=== PATIENT | female | born 1975 | race African-American/Black ===

== ENCOUNTER 2017-05-29 11:05 | Inpatient (IN) | payer OTHER ==
[2017-05-29 14:01] VITALS: BMI 27.3
--- NOTE | 2017-05-29 14:13 | HP ---
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 Reports being in detox two weeks ago at [facility] but did not complete as became too anxious and left. Her children are in [place] in foster care and she would like to be sober for them. Exam Limitations: Clinical Condition - Ebola screening Have you traveled outside of the country in the last 21 days: No (N) Have you had contact with anyone from an Ebola affected area: No Have you been sick,other than usual withdrawal symptoms: No Do you have a fever: No - Review of Systems Constitutional: Loss of Appetite, Changes in sleep, Weakness EENT: reports: No Symptoms Reported Respiratory: reports: No Symptoms reported Cardiac: reports: No Symptoms Reported GI: reports: Poor Appetite, Poor Fluid Intake : reports: Frequency Musculoskeletal: reports: No Symptoms Reported Integumentary: reports: Dryness Neuro: reports: Headache, Tremors Endocrine: reports: No Symptoms Reported Hematology: reports: No Symptoms Reported Psychiatric: reports: Judgement Intact, Mood/Affect Appropiate, Anxious Other Systems: Reviewed and Negative Patient History - Patient Medical History Hx Anemia: No Hx Asthma: Yes (not on meds) Hx Chronic Obstructive Pulmonary Disease (COPD): No Hx Cancer: No Hx Cardiac Disorders: No Hx Congestive Heart Failure: No Hx Hypertension: No Hx Hypercholesterolemia: No Hx Pacemaker: No HX Cerebrovascular Accident: No Hx Seizures: No Hx Dementia: No Hx Diabetes: No Hx Gastrointestinal Disorders: No Hx Liver Disease: No Hx Genitourinary Disorders: No Hx Sexually Transmitted Disorders: No Hx Renal Disease (ESRD): No Hx Thyroid Disease: No Hx Human Immunodeficiency Virus (HIV): No Hx Hepatitis C: No Hx Depression: Yes (major depression, panic, anxiety) Hx Suicide Attempt: Yes (in past) Hx Bipolar Disorder: No Hx Schizophrenia: No - Patient Surgical History Hx Section: Yes (three) - PPD History Previous Implant?: Yes Documented Results: Negative w/o proof Implanted On Prior R Admission?: No PPD to be Administered?: Yes - Reproductive History Patient is a Female of Child Bearing Age (11 -55 yrs old): Yes - Smoking Cessation Smoking history: Current every day smoker Have you smoked in the past 12 months: Yes Aproximately how many cigarettes per day: 15 Initiated information on smoking cessation: Yes 'Breaking Loose' booklet given: 05/29/17 (give on floor) - Substance & Tx. History Hx Alcohol Use: Yes Hx Substance Use: Yes Substance Use Type: Alcohol, Heroin Hx Substance Use Treatment: Yes (detox, outpatient rehab) - Substances Abused alcohol Route: Oral Frequency: Daily Amount used: 2 pints liquor (rum), six pack 12 oz beer Age of first use: 7 Date of Last Use: 05/29/17 cocaine Route: Smoking Frequency: Daily Amount used: $200 Age of first use: 23 Date of Last Use: 05/29/17 marijuan Frequency: 1-2 times per week Amount used: 2 blunts Age of first use: 23 Date of Last Use: 05/22/17 Family Disease History - Family Disease History Family Disease History: Heart Disease: Brother (one living - HTN, sleep apne), Other: Father (unknown), Mother (, AIDS, hx IDU), Brother, Sister (1/2 sisters - no contact), Daughter (three, one with epilepsy) Admission Physical Exam BHS - Vital Signs Vital Signs: Vital Signs - 24 hr 05/29/17 13:54 Temperature 98.1 F Pulse Rate 87 Respiratory 16 Rate Blood Pressure 124/73 - Physical General Appearance: Yes: Nourished, Appropriately Dressed, Moderate Distress, Tremorous, Anxious HEENTM: Yes: Hearing grossly Normal, Normocephalic, Normal Voice, Pharynx Normal Respiratory: Yes: Normal Breath Sounds, No Respiratory Distress Neck: Yes: No masses,lesions,Nodules, Supple Breast: Yes: Breast Exam Deferred Cardiology: Yes: Regular Rhythm, Regular Rate Abdominal: Yes: Non Tender, Flat Genitourinary: Yes: Frequency Back: Yes: Normal Inspection Musculoskeletal: Yes: full range of Motion, Gait Steady Extremities: Yes: Normal Capillary Refill, Normal Inspection, Tremors Neurological: Yes: Alert, Normal Mood/Affect, Normal Response Integumentary: Yes: Normal Color, Warm Lymphatic: Yes: Within Normal Limits - Diagnostic (1) Alcohol dependence with withdrawal Current Visit: Yes Status: Chronic Qualifiers: Complication of substance-induced condition: uncomplicated Qualified Code(s ): F10.230 - Alcohol dependence with withdrawal, uncomplicated (2) Nicotine dependence Current Visit: Yes Status: Chronic Qualifiers: Nicotine product type: cigarettes Substance use status: uncomplicated Qualified Code(s): F17.210 - Nicotine dependence, cigarettes, uncomplicated Cleared for Admission [facility] - Detox or Rehab [facility] Level of Care: Medically Managed Detox Regimen/Protocol: Librium [facility] Breath Alcohol Content Breath Alcohol Content: 0 Urine Pregancy Test - Result Urine Test Results: Negative- NO Line Present Urine Drug Screen - Results Drug Screen Negative: No Urine Drug Screen Results: THC-Marijuana, VIGNESH-Cocaine, BZO-Benzodiazepines
[2017-05-29] MEDS ORDERED: LOPERAMIDE HCL 2 MG CAPSULE PO PRN (14:21)
[2017-05-29] MEDS ORDERED: chlordiazePOXIDE HCL 25 MG CAPSULE PO PRN (14:21)
[2017-05-29] MEDS ORDERED: P-EPHED 60MG/TRIPROLIDI 2.5MG TABLET PO PRN (14:21)
[2017-05-29] MEDS ORDERED: MAG HYDROX/AL HYDROX/SIMETH 30 ML UNIT-DOSE CUP PO PRN (14:21)
[2017-05-29] MEDS ORDERED: IBUPROFEN 400 MG TABLET (FP) PO PRN (14:21)
[2017-05-29] MEDS ORDERED: MAGNESIUM HYDROX 2400MG/30ML ORAL SUSPENSION 30 ML CUP PO PRN (14:21)
[2017-05-29] MEDS ORDERED: NICOTINE POLACRILEX 4 MG GUM BC PRN (14:21)
[2017-05-29] MEDS ORDERED: chlordiazePOXIDE HCL 25 MG CAPSULE PO ONE (14:21)
[2017-05-29] MEDS ORDERED: guaiFENesin/D-METHORPHAN HB 10 ML UNIT-DOSE CUPS PO PRN (14:21)
[2017-05-29] MEDS ORDERED: MAGNESIUM CITRATE 300 ML BOTTLE PO PRN (14:21)
[2017-05-29] MEDS ORDERED: ACETAMINOPHEN 325 MG TABLET (FP) PO PRN (14:21)
[2017-05-29] MEDS ORDERED: MENTHOL/PHENOL 1 EACH UD MM PRN (14:21)
[2017-05-29] MEDS ORDERED: ALBUTEROL SO4 18 GM HFA INHALER IH PRN (14:23)
[2017-05-29] MEDS: chlordiazePOXIDE HCL 25 MG CAPSULE PO SCH ×2 (17:07→23:38)
[2017-05-29 18:16] LABS: URINE APPEARANCE SLCLOUDY; URINE BILIRUBIN NEGATIVE (NEGATIVE); URINE BLOOD NEGATIVE (NEGATIVE); URINE COLOR YELLOW; URINE GLUCOSE (UA) NEGATIVE (NEGATIVE); URINE KETONE TRACE (NEGATIVE); URINE LEUK ESTERASE NEGATIVE (NEGATIVE); URINE NITRITE NEGATIVE (NEGATIVE); URINE PROTEIN NEGATIVE (NEGATIVE); URINE UROBILINOGEN 4.0 E.U/dl mg/dL (0.2-1.0)
[2017-05-29] MEDS: THIAMINE HCL 100 MG TABLET (FP) PO SCH (23:39)
[2017-05-30] MEDS: chlordiazePOXIDE HCL 25 MG CAPSULE PO SCH ×4 (07:50→22:38)
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
[2017-05-30 10:43] LABS: HEMATOCRIT 39.4 % (32.4-45.2); HEMOGLOBIN 13.1 GM/dL (10.7-15.3); MCH 28.8 pg (25.7-33.7); MCHC 33.2 g/dl (32.0-36.0); MEAN CELL VOLUME 86.7 fl (80-96); PLATELET COUNT 165 K/MM3 (134-434); RBC 4.54 M/mm3 (3.60-5.2); RDW 15.2 % (11.6-15.6); WHITE BLOOD COUNT 4.8 K/mm3 (4.0-10.0)
[2017-05-30 10:57] LABS: ALBUMIN 3.4 g/dl (3.4-5.0); ANION GAP 11 (8-16); BLOOD UREA NITROGEN 8 mg/dL (7-18); CALCIUM 8.3 mg/dL (8.5-10.1); CHLORIDE 106 mmol/L (98-107); CO2 24 mmol/L (21-32); CREATININE 0.7 mg/dL (0.55-1.02); GLUCOSE,RANDOM 80 mg/dL (74-106); POTASSIUM 4.1 mmol/L (3.5-5.1); SGOT/AST 16 U/L (15-37); SGPT/ALT 26 U/L (12-78); SODIUM 141 mmol/L (136-145)
[2017-05-30 10:59] LABS: ALK PHOS 53 U/L (45-117); BILIRUBIN,TOTAL 0.5 mg/dL (0.2-1.0)
[2017-05-30] MEDS: PRENATAL VITAMINS W/ FOLIC ACID TABLET (FP) PO SCH (11:10)
[2017-05-30] MEDS: hydrOXYzine PAMOATE 50 MG CAPSULE (FP) PO PRN (11:11)
--- NOTE | 2017-05-30 12:01 | PN ---
S CIWA - CIWA Score Nausea/Vomitin-Mild Nausea/No Vomiting Muscle Tremors: 4-Moderate,w/Arms Extend Anxiety: 4-Mod. Anxious/Guarded Agitation: 4-Moderately Restless Paroxysmal Sweats: 1-Minimal Palms Moist Orientation: 0-Oriented Tacttile Disturbances: 1-Very Mild Itch/Numbness Auditory Disturbances: 0-None Visual Disturbances: 0-None Headache: 0-None Present CIWA-Ar Total Score: 15 BHS Progress Note (SOAP) Subjective: sweat tremor anxiety gi distress restlessness Objective: 05/30/17 12:01 Vital Signs Temperature 98.1 F 05/30/17 10:05 Pulse Rate 84 05/30/17 10:05 Respiratory Rate 20 05/30/17 10:05 Blood Pressure 118/73 05/30/17 10:05 O2 Sat by Pulse Oximetry (%) Laboratory Last Values WBC 4.8 K/mm3 (4.0-10.0) 05/30/17 08:00 RBC 4.54 M/mm3 (3.60-5.2) 05/30/17 08:00 Hgb 13.1 GM/dL (10.7-15.3) 05/30/17 08:00 Hct 39.4 % (32.4-45.2) 05/30/17 08:00 MCV 86.7 fl (80-96) 05/30/17 08:00 MCH 28.8 pg (25.7-33.7) 05/30/17 08:00 MCHC 33.2 g/dl (32.0-36.0) 05/30/17 08:00 RDW 15.2 % (11.6-15.6) 05/30/17 08:00 Plt Count 165 K/MM3 (134-434) 05/30/17 08:00 MPV 11.0 fl (7.5-11.1) 05/30/17 08:00 Sodium 141 mmol/L (136-145) 05/30/17 08:00 Potassium 4.1 mmol/L (3.5-5.1) 05/30/17 08:00 Chloride 106 mmol/L (98-107) 05/30/17 08:00 Carbon Dioxide 24 mmol/L (21-32) 05/30/17 08:00 Anion Gap 11 (8-16) 05/30/17 08:00 BUN 8 mg/dL (7-18) 05/30/17 08:00 Creatinine 0.7 mg/dL (0.55-1.02) 05/30/17 08:00 Creat Clearance w eGFR > 60 (>60) 05/30/17 08:00 Random Glucose 80 mg/dL (74-106) 05/30/17 08:00 Calcium 8.3 mg/dL (8.5-10.1) L 05/30/17 08:00 Total Bilirubin 0.5 mg/dL (0.2-1.0) 05/30/17 08:00 AST 16 U/L (15-37) 05/30/17 08:00 ALT 26 U/L (12-78) 05/30/17 08:00 Alkaline Phosphatase 53 U/L (45-117) 05/30/17 08:00 Total Protein 7.0 g/dl (6.4-8.2) 05/30/17 08:00 Albumin 3.4 g/dl (3.4-5.0) 05/30/17 08:00 Urine Color Yellow 05/29/17 18:05 Urine Appearance Slcloudy 05/29/17 18:05 Urine pH 6.0 (5.0-8.0) 05/29/17 18:05 Ur Specific [place] 1.027 (1.001-1.035) 05/29/17 18:05 Urine Protein Negative (NEGATIVE) 05/29/17 18:05 Urine Glucose (UA) Negative (NEGATIVE) 05/29/17 18:05 Urine Ketones Trace (NEGATIVE) H 05/29/17 18:05 Urine Blood Negative (NEGATIVE) 05/29/17 18:05 Urine Nitrite Negative (NEGATIVE) 05/29/17 18:05 Urine Bilirubin Negative (NEGATIVE) 05/29/17 18:05 Urine Urobilinogen 4.0 e.u/dl mg/dL (0.2-1.0) H 05/29/17 18:05 Ur Leukocyte Esterase Negative (NEGATIVE) 05/29/17 18:05 lab noted Assessment: 05/30/17 12:01 withdrawal sx Plan: continue detox
[2017-05-30] MEDS: THIAMINE HCL 100 MG TABLET (FP) PO SCH (22:38)
[2017-05-30] MEDS: ZOLPIDEM TARTRATE 5 MG TABLET PO PRN (22:39)
--- NOTE | 2017-05-31 00:11 | EKG ---
Test Reason : Blood Pressure : / mmHG Vent. Rate : 076 BPM Atrial Rate : 076 BPM P-R Int : 140 ms QRS Dur : 078 ms QT Int : 390 ms P-R-T Axes : 057 065 043 degrees QTc Int : 438 ms NORMAL SINUS RHYTHM NORMAL ECG NO PREVIOUS ECGS AVAILABLE Confirmed by BETTE PINO MD ([id number]) on 05/31/2017 12:11:27 AM Referred By: Confirmed By:BETTE PINO MD
[2017-05-31] MEDS: chlordiazePOXIDE HCL 25 MG CAPSULE PO SCH ×2 (07:41→10:49)
[2017-05-31] MEDS: PRENATAL VITAMINS W/ FOLIC ACID TABLET (FP) PO SCH (10:49)
--- NOTE | 2017-05-31 11:34 | PN ---
S CIWA - CIWA Score Nausea/Vomitin-Mild Nausea/No Vomiting Muscle Tremors: 4-Moderate,w/Arms Extend Anxiety: 3 Agitation: 3 Paroxysmal Sweats: 1-Minimal Palms Moist Orientation: 0-Oriented Tacttile Disturbances: 0-None Auditory Disturbances: 0-None Visual Disturbances: 0-None Headache: 0-None Present CIWA-Ar Total Score: 12 BHS Progress Note (SOAP) Subjective: sweat tremor anxiety restlessness mild gi distress Objective: 05/31/17 11:33 Vital Signs Temperature 98.1 F 05/31/17 07:09 Pulse Rate 74 05/31/17 07:09 Respiratory Rate 18 05/31/17 07:09 Blood Pressure 99/53 05/31/17 07:09 O2 Sat by Pulse Oximetry (%) Laboratory Last Values WBC 4.8 K/mm3 (4.0-10.0) 05/30/17 08:00 RBC 4.54 M/mm3 (3.60-5.2) 05/30/17 08:00 Hgb 13.1 GM/dL (10.7-15.3) 05/30/17 08:00 Hct 39.4 % (32.4-45.2) 05/30/17 08:00 MCV 86.7 fl (80-96) 05/30/17 08:00 MCH 28.8 pg (25.7-33.7) 05/30/17 08:00 MCHC 33.2 g/dl (32.0-36.0) 05/30/17 08:00 RDW 15.2 % (11.6-15.6) 05/30/17 08:00 Plt Count 165 K/MM3 (134-434) 05/30/17 08:00 MPV 11.0 fl (7.5-11.1) 05/30/17 08:00 Sodium 141 mmol/L (136-145) 05/30/17 08:00 Potassium 4.1 mmol/L (3.5-5.1) 05/30/17 08:00 Chloride 106 mmol/L (98-107) 05/30/17 08:00 Carbon Dioxide 24 mmol/L (21-32) 05/30/17 08:00 Anion Gap 11 (8-16) 05/30/17 08:00 BUN 8 mg/dL (7-18) 05/30/17 08:00 Creatinine 0.7 mg/dL (0.55-1.02) 05/30/17 08:00 Creat Clearance w eGFR > 60 (>60) 05/30/17 08:00 Random Glucose 80 mg/dL (74-106) 05/30/17 08:00 Calcium 8.3 mg/dL (8.5-10.1) L 05/30/17 08:00 Total Bilirubin 0.5 mg/dL (0.2-1.0) 05/30/17 08:00 AST 16 U/L (15-37) 05/30/17 08:00 ALT 26 U/L (12-78) 05/30/17 08:00 Alkaline Phosphatase 53 U/L (45-117) 05/30/17 08:00 Total Protein 7.0 g/dl (6.4-8.2) 05/30/17 08:00 Albumin 3.4 g/dl (3.4-5.0) 05/30/17 08:00 Urine Color Yellow 05/29/17 18:05 Urine Appearance Slcloudy 05/29/17 18:05 Urine pH 6.0 (5.0-8.0) 05/29/17 18:05 Ur Specific [place] 1.027 (1.001-1.035) 05/29/17 18:05 Urine Protein Negative (NEGATIVE) 05/29/17 18:05 Urine Glucose (UA) Negative (NEGATIVE) 05/29/17 18:05 Urine Ketones Trace (NEGATIVE) H 05/29/17 18:05 Urine Blood Negative (NEGATIVE) 05/29/17 18:05 Urine Nitrite Negative (NEGATIVE) 05/29/17 18:05 Urine Bilirubin Negative (NEGATIVE) 05/29/17 18:05 Urine Urobilinogen 4.0 e.u/dl mg/dL (0.2-1.0) H 05/29/17 18:05 Ur Leukocyte Esterase Negative (NEGATIVE) 05/29/17 18:05 RPR Titer Nonreactive (NONREACTIVE) 05/30/17 08:00 HIV 1&2 Antibody Screen Negative 05/30/17 08:00 HIV P24 Antigen Negative 05/30/17 08:00 lab noted Assessment: 05/31/17 11:33 withdrawal sx Plan: continue detox
--- NOTE | 2017-05-31 14:21 | PN ---
Psychiatric Progress Note Vital Signs: Vital Signs Period Temp Pulse Resp BP Sys/Moya Pulse Ox Last 24 Hr 96.3 F-98.1 F 74-93 16-20 99-131/53-77 Date of Session: 05/31/17 Chief Complaint:: Insomnia HPI: Patient reporoits waking uo aftyre Ambien intake in 4-5 hours, and asking fro lab aid to sleep longer, reports good response on Seroquel in the past Current Medications: Active Medications Generic Name Dose Route Start Last Admin Trade Name Freq PRN Reason Stop Dose Admin Acetaminophen 650 mg 05/29/17 14:21 Tylenol - PO Q4H PRN FEVER Al Hydroxide/Mg Hydroxide 30 ml 05/29/17 14:21 Mylanta Oral Suspension - PO Q6H PRN DYSPEPSIA Albuterol Sulfate 2 puff 05/29/17 14:23 Ventolin Hfa Inhaler - IH Q4H PRN SHORT OF BREATH/WHEEZING Chlordiazepoxide HCl 15 mg 05/31/17 17:00 Librium - PO 06/01/17 11:01 [id number] ADRI Chlordiazepoxide HCl 25 mg 05/29/17 14:21 05/29/17 20:55 Librium - PO 06/01/17 14:20 25 mg Q4H PRN Administration WITHDRAWAL(CONT SUBST) Chlordiazepoxide HCl 10 mg 06/01/17 17:00 Librium - PO 06/02/17 11:01 [id number] ADRI Eucalyptus/Menthol/Phenol/Sorbitol 1 each 05/29/17 14:21 Cepastat Lozenge - MM Q4H PRN SORE THROAT Guaifenesin 10 ml 05/29/17 14:21 Robitussin Dm - PO Q6H PRN COUGH Hydroxyzine Pamoate 50 mg 05/29/17 14:21 05/30/17 11:11 Vistaril - PO 50 mg Q4H PRN Administration AGITATION Ibuprofen 400 mg 05/29/17 14:21 Motrin - PO Q6H PRN PAIN LEVEL 4-6 Loperamide HCl 4 mg 05/29/17 14:21 Imodium - PO Q6H PRN DIARRHEA Magnesium Citrate 300 ml 05/29/17 14:21 Citroma - PO Q48H PRN CONSTIPATION Magnesium Hydroxide 30 ml 05/29/17 14:21 Milk Of Magnesia - PO DAILY PRN CONSTIPATION Nicotine Polacrilex 4 mg 05/29/17 14:21 Nicorette Gum - BC Q2H PRN NICOTINE REPLACEMENT RX Multivit/Folic Acid/Iron 1 tab 05/30/17 10:00 05/31/17 10:49 Vitamins (Sjr) - PO 1 tab DAILY ADRI Administration Pseudoephedrine/Triprolidine 1 combo 05/29/17 14:21 Actifed - PO TID PRN NASAL CONGESTION Thiamine HCl 100 mg 05/29/17 22:00 05/30/17 22:38 Vitamin B1 - PO 100 mg HS ADRI Administration Zolpidem Tartrate 10 mg 05/30/17 14:24 05/30/17 22:39 Ambien - PO 10 mg HS PRN Administration INSOMNIA Medication(s) Change(s): Seroquel 50mg po qhs Mental Status Exam - Mental Status Exam Alert and Oriented to: Person Cognitive Function: Fair Patient Appearance: Well Groomed Mood: Anxious, Irritable Affect: Labile Patient Behavior: Impulsive, Talkative, Cooperative Speech Pattern: Appropriate Voice Loudness: Normal Thought Process: Goal Oriented Thought Disorder: Being Controlled Hallucinations: Denies Suicidal Ideation: Denies Homicidal Ideation: Denies Insight/Judgement: Fair Sleep: Difficulty falling asleep Appetite: Weight loss Muscle strength/Tone: Normal Gait/Station: Normal Additional Comments: Seroquel 50mg po qhs Psychiatric Treatment Plan - Problem List (1) Alcohol-induced insomnia Current Visit: Yes (2) Alcohol dependence with withdrawal Current Visit: Yes Qualifiers: Complication of substance-induced condition: uncomplicated Qualified Code(s ): F10.230 - Alcohol dependence with withdrawal, uncomplicated (3) Cannabis dependence Current Visit: Yes (4) Cocaine dependence Current Visit: Yes (5) Substance induced mood disorder Current Visit: Yes (6) Nicotine dependence Current Visit: Yes Qualifiers: Nicotine product type: cigarettes Substance use status: uncomplicated Qualified Code(s): F17.210 - Nicotine dependence, cigarettes, uncomplicated (7) PTSD (post-traumatic stress disorder) Current Visit: Yes (8) MDD (major depressive disorder) Current Visit: Yes Initial treatment plan: Seroquel 50mg po qhs
[2017-05-31] MEDS: chlordiazePOXIDE 5 MG CAPSULE PO SCH ×2 (17:50→22:19)
[2017-05-31] MEDS: QUEtiapine FUMARATE 50 MG TABLET PO SCH (22:19)
[2017-05-31] MEDS: ZOLPIDEM TARTRATE 5 MG TABLET PO PRN (22:19)
[2017-05-31] MEDS: THIAMINE HCL 100 MG TABLET (FP) PO SCH (22:20)
[2017-06-01] MEDS: chlordiazePOXIDE 5 MG CAPSULE PO SCH ×2 (06:38→10:54)
--- NOTE | 2017-06-01 09:32 | PN ---
S Progress Note (SOAP) Subjective: feeling better, mild sweat no tremor tolerates food and fluid well alert oriented x3 steady gait Objective: 06/01/17 09:31 Vital Signs Temperature 98.1 F 06/01/17 06:00 Pulse Rate 86 06/01/17 06:00 Respiratory Rate 18 06/01/17 06:00 Blood Pressure 105/74 06/01/17 06:00 O2 Sat by Pulse Oximetry (%) Laboratory Last Values WBC 4.8 K/mm3 (4.0-10.0) 05/30/17 08:00 RBC 4.54 M/mm3 (3.60-5.2) 05/30/17 08:00 Hgb 13.1 GM/dL (10.7-15.3) 05/30/17 08:00 Hct 39.4 % (32.4-45.2) 05/30/17 08:00 MCV 86.7 fl (80-96) 05/30/17 08:00 MCH 28.8 pg (25.7-33.7) 05/30/17 08:00 MCHC 33.2 g/dl (32.0-36.0) 05/30/17 08:00 RDW 15.2 % (11.6-15.6) 05/30/17 08:00 Plt Count 165 K/MM3 (134-434) 05/30/17 08:00 MPV 11.0 fl (7.5-11.1) 05/30/17 08:00 Sodium 141 mmol/L (136-145) 05/30/17 08:00 Potassium 4.1 mmol/L (3.5-5.1) 05/30/17 08:00 Chloride 106 mmol/L (98-107) 05/30/17 08:00 Carbon Dioxide 24 mmol/L (21-32) 05/30/17 08:00 Anion Gap 11 (8-16) 05/30/17 08:00 BUN 8 mg/dL (7-18) 05/30/17 08:00 Creatinine 0.7 mg/dL (0.55-1.02) 05/30/17 08:00 Creat Clearance w eGFR > 60 (>60) 05/30/17 08:00 Random Glucose 80 mg/dL (74-106) 05/30/17 08:00 Calcium 8.3 mg/dL (8.5-10.1) L 05/30/17 08:00 Total Bilirubin 0.5 mg/dL (0.2-1.0) 05/30/17 08:00 AST 16 U/L (15-37) 05/30/17 08:00 ALT 26 U/L (12-78) 05/30/17 08:00 Alkaline Phosphatase 53 U/L (45-117) 05/30/17 08:00 Total Protein 7.0 g/dl (6.4-8.2) 05/30/17 08:00 Albumin 3.4 g/dl (3.4-5.0) 05/30/17 08:00 Urine Color Yellow 05/29/17 18:05 Urine Appearance Slcloudy 05/29/17 18:05 Urine pH 6.0 (5.0-8.0) 05/29/17 18:05 Ur Specific [place] 1.027 (1.001-1.035) 05/29/17 18:05 Urine Protein Negative (NEGATIVE) 05/29/17 18:05 Urine Glucose (UA) Negative (NEGATIVE) 05/29/17 18:05 Urine Ketones Trace (NEGATIVE) H 05/29/17 18:05 Urine Blood Negative (NEGATIVE) 05/29/17 18:05 Urine Nitrite Negative (NEGATIVE) 05/29/17 18:05 Urine Bilirubin Negative (NEGATIVE) 05/29/17 18:05 Urine Urobilinogen 4.0 e.u/dl mg/dL (0.2-1.0) H 05/29/17 18:05 Ur Leukocyte Esterase Negative (NEGATIVE) 05/29/17 18:05 RPR Titer Nonreactive (NONREACTIVE) 05/30/17 08:00 Hep C Ab Diagnostic <0.1 s/co ratio (0.0-0.9) 05/30/17 08:00 HIV 1&2 Antibody Screen Negative 05/30/17 08:00 HIV P24 Antigen Negative 05/30/17 08:00 lab noted Assessment: 06/01/17 09:31 mild withdrawal sx Plan: medically supervised detox
[2017-06-01] MEDS: PRENATAL VITAMINS W/ FOLIC ACID TABLET (FP) PO SCH (10:54)
[2017-06-01] MEDS: hydrOXYzine PAMOATE 50 MG CAPSULE (FP) PO PRN ×2 (15:25→22:12)
[2017-06-01] MEDS: chlordiazePOXIDE HCL 10 MG CAPSULE PO SCH ×2 (18:04→22:12)
[2017-06-01] MEDS: ZOLPIDEM TARTRATE 5 MG TABLET PO PRN (22:12)
[2017-06-01] MEDS: QUEtiapine FUMARATE 50 MG TABLET PO SCH (22:12)
[2017-06-01] MEDS: THIAMINE HCL 100 MG TABLET (FP) PO SCH (22:12)
[2017-06-02] MEDS: chlordiazePOXIDE HCL 10 MG CAPSULE PO SCH (05:25)
[2017-06-02 06:19] VITALS: BP 110/76; PULSE 95; TEMP 98.1
--- NOTE | 2017-06-02 10:04 | PN ---
S Progress Note Note: patient is alert oriented x 3 steady gait tolerates food and fluid well social with peers in day room cardiac s1s2 lungs clear bilaterally abdomen soft none tenderness no acute distress
--- NOTE | 2017-06-02 10:09 | DS ---
[facility] Detox Discharge Summary Admission Date: 05/29/17 Discharge Date: 06/02/17 - History Present History: Alcohol Dependence - Physical Exam Results Vital Signs: Vital Signs Temperature 98.1 F 06/02/17 06:00 Pulse Rate 95 H 06/02/17 06:00 Respiratory Rate 18 06/02/17 06:00 Blood Pressure 110/76 06/02/17 06:00 O2 Sat by Pulse Oximetry (%) Pertinent Admission Physical Exam Findings: withdrawal sx Laboratory Last Values WBC 4.8 K/mm3 (4.0-10.0) 05/30/17 08:00 RBC 4.54 M/mm3 (3.60-5.2) 05/30/17 08:00 Hgb 13.1 GM/dL (10.7-15.3) 05/30/17 08:00 Hct 39.4 % (32.4-45.2) 05/30/17 08:00 MCV 86.7 fl (80-96) 05/30/17 08:00 MCH 28.8 pg (25.7-33.7) 05/30/17 08:00 MCHC 33.2 g/dl (32.0-36.0) 05/30/17 08:00 RDW 15.2 % (11.6-15.6) 05/30/17 08:00 Plt Count 165 K/MM3 (134-434) 05/30/17 08:00 MPV 11.0 fl (7.5-11.1) 05/30/17 08:00 Sodium 141 mmol/L (136-145) 05/30/17 08:00 Potassium 4.1 mmol/L (3.5-5.1) 05/30/17 08:00 Chloride 106 mmol/L (98-107) 05/30/17 08:00 Carbon Dioxide 24 mmol/L (21-32) 05/30/17 08:00 Anion Gap 11 (8-16) 05/30/17 08:00 BUN 8 mg/dL (7-18) 05/30/17 08:00 Creatinine 0.7 mg/dL (0.55-1.02) 05/30/17 08:00 Creat Clearance w eGFR > 60 (>60) 05/30/17 08:00 Random Glucose 80 mg/dL (74-106) 05/30/17 08:00 Calcium 8.3 mg/dL (8.5-10.1) L 05/30/17 08:00 Total Bilirubin 0.5 mg/dL (0.2-1.0) 05/30/17 08:00 AST 16 U/L (15-37) 05/30/17 08:00 ALT 26 U/L (12-78) 05/30/17 08:00 Alkaline Phosphatase 53 U/L (45-117) 05/30/17 08:00 Total Protein 7.0 g/dl (6.4-8.2) 05/30/17 08:00 Albumin 3.4 g/dl (3.4-5.0) 05/30/17 08:00 Urine Color Yellow 05/29/17 18:05 Urine Appearance Slcloudy 05/29/17 18:05 Urine pH 6.0 (5.0-8.0) 05/29/17 18:05 Ur Specific [place] 1.027 (1.001-1.035) 05/29/17 18:05 Urine Protein Negative (NEGATIVE) 05/29/17 18:05 Urine Glucose (UA) Negative (NEGATIVE) 05/29/17 18:05 Urine Ketones Trace (NEGATIVE) H 05/29/17 18:05 Urine Blood Negative (NEGATIVE) 05/29/17 18:05 Urine Nitrite Negative (NEGATIVE) 05/29/17 18:05 Urine Bilirubin Negative (NEGATIVE) 05/29/17 18:05 Urine Urobilinogen 4.0 e.u/dl mg/dL (0.2-1.0) H 05/29/17 18:05 Ur Leukocyte Esterase Negative (NEGATIVE) 05/29/17 18:05 RPR Titer Nonreactive (NONREACTIVE) 05/30/17 08:00 Hep C Ab Diagnostic <0.1 s/co ratio (0.0-0.9) 05/30/17 08:00 HIV 1&2 Antibody Screen Negative 05/30/17 08:00 HIV P24 Antigen Negative 05/30/17 08:00 lab noted - Treatment Hospital Course: Detox Protocol Followed, Detoxed Safely, Responded well, Discharged Condition Good, Rehab Referral Accepted Patient has Accepted [facility] - Medication Discharge Medications: Ambulatory Orders Quetiapine Fumarate [Quetiapine Fumarate ER] 50 mg PO HS #30 tab.er.24h - Diagnosis (1) Alcohol dependence with withdrawal Status: Acute Qualifiers: Complication of substance-induced condition: uncomplicated Qualified Code(s ): F10.230 - Alcohol dependence with withdrawal, uncomplicated (2) Asthma Status: Chronic Qualifiers: Asthma severity: mild Asthma persistence: intermittent Asthma complication type: with status asthmaticus Qualified Code(s): J45.22 - Mild intermittent asthma with status asthmaticus (3) Nicotine dependence Status: Acute Qualifiers: Nicotine product type: cigarettes Substance use status: in withdrawal Qualified Code(s): F17.213 - Nicotine dependence, cigarettes, with withdrawal - AMA Did Patient Leave Against Medical Advice: No
== END 2017-06-02 09:30 | disposition home or self-care (01) | DRG 774 ==
LOC: YASAS 11:05 → Y6N 15:50
PROVIDERS: ADMIT Internal Medicine; ATTEND Internal Medicine
PROC: HZ2ZZZZ Detoxification Services for Substance Abuse Treatment (ICD-10-PCS; principal; 2017-05-29)
DX: F10.230 Alcohol dependence with withdrawal, uncomplicated (principal); F14.20 Cocaine dependence, uncomplicated; F12.20 Cannabis dependence, uncomplicated; F43.10 Post-traumatic stress disorder, unspecified; J45.20 Mild intermittent asthma, uncomplicated; F33.9 Major depressive disorder, recurrent, unspecified; F10.280 Alcohol dependence with alcohol-induced anxiety disorder
CPT/HCPCS: 36415; 80053; 81003; 85027; 86593; 87389; 93005; 93010

== ENCOUNTER 2017-07-05 15:43 | Inpatient (IN) | payer OTHER ==
[2017-07-05 17:21] VITALS: BMI 26.6
--- NOTE | 2017-07-05 20:50 | HP ---
CIWA Score - CIWA Score Nausea/Vomitin-No Nausea/No Vomiting Muscle Tremors: 2 Anxiety: 4-Mod. Anxious/Guarded Agitation: 4-Moderately Restless Paroxysmal Sweats: 4-Forehead w/Sweat Beads Orientation: 0-Oriented Tacttile Disturbances: 1-Very Mild Itch/Numbness Auditory Disturbances: 0-None Visual Disturbances: 0-None Headache: 4-Moderately Severe CIWA-Ar Total Score: 19 Admission ROS BHS - HPI Chief Complaint: Alcohol withdrawal symptoms Allergies/Adverse Reactions: Allergies Allergy/AdvReac Type Severity Reaction Status Date / Time gabapentin AdvReac Intermediate made me Verified 07/05/17 19:46 agitated and angry History of Present Illness: 41 years old female with a long history of alcohol dependence is seeking admission to detox. Patient was last in detox 05/29- 06/02/2017. She reports insignificant period of sobriety. Patient has past medical history of asthma, chlamydia, gonorrhea, anxiety and depression. Reports suicide attempt at age 15 years and denies suicidal ideation at this time. Exam Limitations: No Limitations - Ebola screening Have you traveled outside of the country in the last 21 days: No Have you had contact with anyone from an Ebola affected area: No Have you been sick,other than usual withdrawal symptoms: No Do you have a fever: No - Review of Systems Constitutional: Loss of Appetite, Malaise, Night Sweats, Changes in sleep EENT: reports: Other (left eye blindness) Respiratory: reports: No Symptoms reported Cardiac: reports: No Symptoms Reported GI: reports: Poor Appetite, Poor Fluid Intake, Abdominal cramping : reports: No Symptoms Reported Musculoskeletal: reports: No Symptoms Reported Integumentary: reports: Dryness Neuro: reports: Headache, Tingling, Tremors Endocrine: reports: No Symptoms Reported Hematology: reports: Anemia Psychiatric: reports: Agitated, Anxious Other Systems: Reviewed and Negative Patient History - Patient Medical History Hx Anemia: Yes (Not on medication) Hx Asthma: Yes (Not on medication) Hx Chronic Obstructive Pulmonary Disease (COPD): No Hx Cancer: No Hx Cardiac Disorders: No Hx Congestive Heart Failure: No Hx Hypertension: No Hx Hypercholesterolemia: No Hx Pacemaker: No HX Cerebrovascular Accident: No Hx Seizures: No Hx Dementia: No Hx Diabetes: No Hx Gastrointestinal Disorders: No Hx Liver Disease: No Hx Genitourinary Disorders: No Hx Sexually Transmitted Disorders: Yes (POPPYMYDIA, GONNORHEA) Hx Renal Disease (ESRD): No Hx Thyroid Disease: No Hx Human Immunodeficiency Virus (HIV): No Hx Hepatitis C: No Hx Depression: Yes (major depression, panic, anxiety) Hx Suicide Attempt: Yes (X2. Denies suicidal ideation at this time.) Hx Bipolar Disorder: No Hx Schizophrenia: No - Patient Surgical History Past Surgical History: Yes Hx Neurologic Surgery: No Hx Cataract Extraction: No Hx Cardiac Surgery: No Hx Lung Surgery: No Hx Breast Surgery: No Hx Breast Biopsy: No Hx Abdominal Surgery: No Hx Appendectomy: No Hx Cholecystectomy: No Hx Genitourinary Surgery: No Hx Section: Yes (3 C-SECTIONS) Hx Orthopedic Surgery: No Anesthesia Reaction: No - PPD History Previous Implant?: Yes Documented Results: Negative w/proof Implanted On Prior [facility] Admission?: Yes Date: 05/31/17 PPD to be Administered?: No - Reproductive History Patient is a Female of Child Bearing Age (11 -55 yrs old): Yes LMP comment: LMP 3 months ago - Smoking Cessation Smoking history: Current every day smoker Have you smoked in the past 12 months: Yes Aproximately how many cigarettes per day: 25 Hx Chewing Tobacco Use: No Initiated information on smoking cessation: Yes 'Breaking Loose' booklet given: 07/05/17 - Substance & Tx. History Hx Alcohol Use: Yes Hx Substance Use: Yes Substance Use Type: Alcohol, Cocaine, Marijuana Hx Substance Use Treatment: Yes ([facility] 05/29-06/02/2017) - Substances Abused Alcohol Route: Oral Frequency: Daily Amount used: 16OZ- 23 BEERS Age of first use: 7 Date of Last Use: 07/05/17 Cocaine Route: Smoking Frequency: 1-2 times per week Amount used: 2 GRAMS Age of first use: 22 Date of Last Use: 07/05/17 Ectasy Route: Oral Frequency: 1-3 times last 30 days Amount used: 2 Age of first use: 22 Date of Last Use: 07/05/17 Family Disease History - Family Disease History Family Disease History: Heart Disease: Brother (one living - HTN, sleep apne), Other: Father (unknown), Mother (, AIDS, hx IDU), Brother, Sister (1/2 sisters - no contact), Daughter (three, one with epilepsy) Admission Physical Exam BHS - Vital Signs Vital Signs: Vital Signs - 24 hr 07/05/17 17:17 Temperature 98.5 F - Physical General Appearance: Yes: Moderate Distress HEENTM: Yes: Normal ENT Inspection, Normal Voice, Other (left eye blindness) Respiratory: Yes: Lungs Clear, Normal Breath Sounds, No Respiratory Distress Neck: Yes: Supple Breast: Yes: Breast Exam Deferred Cardiology: Yes: Regular Rhythm, Regular Rate, S1, S2 Abdominal: Yes: Normal Bowel Sounds, Soft Genitourinary: Yes: Within Normal Limits Back: Yes: Normal Inspection Musculoskeletal: Yes: Within Normal Limits Extremities: Yes: Normal Inspection, Tremors Neurological: Yes: Alert, Normal Mood/Affect Integumentary: Yes: Dry Lymphatic: Yes: Within Normal Limits - Diagnostic (1) Alcohol dependence with withdrawal Current Visit: No Status: Acute Qualifiers: Complication of substance-induced condition: uncomplicated Qualified Code(s ): F10.230 - Alcohol dependence with withdrawal, uncomplicated (2) Cannabis dependence Current Visit: No Status: Acute (3) Cocaine dependence Current Visit: No Status: Acute (4) Nicotine dependence Current Visit: No Status: Acute Qualifiers: Nicotine product type: cigarettes Substance use status: in withdrawal Qualified Code(s): F17.213 - Nicotine dependence, cigarettes, with withdrawal (5) Asthma Current Visit: No Status: Chronic Qualifiers: Asthma severity: mild Asthma persistence: intermittent Asthma complication type: with status asthmaticus Qualified Code(s): J45.22 - Mild intermittent asthma with status asthmaticus (6) Depression Current Visit: Yes Status: Chronic (7) Anxiety Current Visit: Yes Status: Chronic Cleared for Admission [facility] - Detox or Rehab [facility] Level of Care: Medically Managed Detox Regimen/Protocol: Librium [facility] Breath Alcohol Content Breath Alcohol Content: 0.031 Urine Pregancy Test - Result Urine Test Results: Negative- NO Line Present Urine Drug Screen - Results Drug Screen Negative: No Urine Drug Screen Results: THC-Marijuana, VIGNESH-Cocaine, AMP-Amphetamines, MET- Methamphetamine
[2017-07-05] MEDS ORDERED: LOPERAMIDE HCL 2 MG CAPSULE PO PRN (21:09)
[2017-07-05] MEDS ORDERED: IBUPROFEN 400 MG TABLET (FP) PO PRN (21:09)
[2017-07-05] MEDS ORDERED: P-EPHED 60MG/TRIPROLIDI 2.5MG TABLET PO PRN (21:09)
[2017-07-05] MEDS ORDERED: MAG HYDROX/AL HYDROX/SIMETH 30 ML UNIT-DOSE CUP PO PRN (21:09)
[2017-07-05] MEDS ORDERED: MAGNESIUM HYDROX 2400MG/30ML ORAL SUSPENSION 30 ML CUP PO PRN (21:09)
[2017-07-05] MEDS ORDERED: chlordiazePOXIDE HCL 25 MG CAPSULE PO PRN (21:09)
[2017-07-05] MEDS ORDERED: MAGNESIUM CITRATE 300 ML BOTTLE PO PRN (21:09)
[2017-07-05] MEDS ORDERED: NICOTINE POLACRILEX 2 MG GUM BC PRN (21:09)
[2017-07-05] MEDS ORDERED: ACETAMINOPHEN 325 MG TABLET (FP) PO PRN (21:09)
[2017-07-05] MEDS ORDERED: MENTHOL/PHENOL 1 EACH UD MM PRN (21:09)
[2017-07-05] MEDS ORDERED: guaiFENesin/D-METHORPHAN HB 10 ML UNIT-DOSE CUPS PO PRN (21:09)
[2017-07-05] MEDS ORDERED: MELATONIN 5 MG TABLETS PO PRN (22:00)
[2017-07-05] MEDS: THIAMINE HCL 100 MG TABLET (FP) PO SCH (22:29)
[2017-07-05] MEDS: chlordiazePOXIDE HCL 25 MG CAPSULE PO SCH (22:30)
[2017-07-06 03:33] LABS: URINE APPEARANCE SLCLOUDY; URINE BILIRUBIN NEGATIVE (<2.0 mg/dL); URINE BLOOD NEGATIVE (NEGATIVE); URINE COLOR YELLOW; URINE GLUCOSE (UA) NEGATIVE (NEGATIVE); URINE KETONE NEGATIVE (NEGATIVE); URINE LEUK ESTERASE TRACE (NEGATIVE); URINE NITRITE NEGATIVE (NEGATIVE); URINE PROTEIN NEGATIVE (NEGATIVE); URINE UROBILINOGEN 4.0 E.U/dl mg/dL (0.2-1.0)
[2017-07-06 03:47] LABS: EPI CELLS MODERATE /HPF (FEW); URINE BACTERIA RARE /hpf (NONE SEEN); URINE MUCUS RARE
[2017-07-06] MEDS: chlordiazePOXIDE HCL 25 MG CAPSULE PO SCH ×4 (05:16→22:17)
--- NOTE | 2017-07-06 09:24 | PN ---
S CIWA - CIWA Score Nausea/Vomitin Muscle Tremors: 3 Anxiety: 3 Agitation: 2 Paroxysmal Sweats: 1-Minimal Palms Moist Orientation: 0-Oriented Tacttile Disturbances: 1-Very Mild Itch/Numbness Auditory Disturbances: 1-Very Mild Visual Disturbances: 0-None Headache: 2-Mild CIWA-Ar Total Score: 16 BHS Progress Note (SOAP) Subjective: ALERT,IRRITABLE,ANXIOUS,INTERRUPTED SLEEP,TREMOR Objective: 07/06/17 09:23 Vital Signs Temperature 97.7 F 07/06/17 06:28 Pulse Rate 65 07/06/17 06:28 Respiratory Rate 18 07/06/17 06:30 Blood Pressure 111/74 07/06/17 06:28 O2 Sat by Pulse Oximetry (%) EKG NSR,NORMAL ECG Laboratory Last Values Urine Color Yellow 07/05/17 22:45 Urine Appearance Slcloudy 07/05/17 22:45 Urine pH 5.0 (5.0-8.0) 07/05/17 22:45 Ur Specific [place] 1.019 (1.001-1.035) 07/05/17 22:45 Urine Protein Negative (NEGATIVE) 07/05/17 22:45 Urine Glucose (UA) Negative (NEGATIVE) 07/05/17 22:45 Urine Ketones Negative (NEGATIVE) 07/05/17 22:45 Urine Blood Negative (NEGATIVE) 07/05/17 22:45 Urine Nitrite Negative (NEGATIVE) 07/05/17 22:45 Urine Bilirubin Negative (<2.0 mg/dL) 07/05/17 22:45 Urine Urobilinogen 4.0 e.u/dl mg/dL (0.2-1.0) H 07/05/17 22:45 Ur Leukocyte Esterase Trace (NEGATIVE) 07/05/17 22:45 Urine WBC (Auto) 4 /hpf (3-5) 07/05/17 22:45 Urine RBC (Auto) 2 /hpf (0-3) 07/05/17 22:45 Ur Epithelial Cells Moderate /HPF (FEW) 07/05/17 22:45 Urine Bacteria Rare /hpf (NONE SEEN) 07/05/17 22:45 Urine Mucus Rare 07/05/17 22:45 LABS PENDING Assessment: 07/06/17 09:23 WITHDRAWAL SYMPTOM Plan: CONTINUE DETOX
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
[2017-07-06 10:08] LABS: HEMATOCRIT 41.4 % (32.4-45.2); HEMOGLOBIN 13.8 GM/dL (10.7-15.3); MCH 29.1 pg (25.7-33.7); MCHC 33.4 g/dl (32.0-36.0); MEAN CELL VOLUME 87.3 fl (80-96); MEAN PLT VOLUME 10.7 fl (7.5-11.1); PLATELET COUNT 151 K/MM3 (134-434); RBC 4.74 M/mm3 (3.60-5.2); RDW 14.3 % (11.6-15.6); WHITE BLOOD COUNT 5.8 K/mm3 (4.0-10.0)
[2017-07-06] MEDS: PRENATAL VITAMINS W/ FOLIC ACID TABLET (FP) PO SCH (10:14)
[2017-07-06] MEDS: NICOTINE 14 MG/24 HOURS TOPICAL PATCH TD SCH (10:15)
--- NOTE | 2017-07-06 10:25 | EKG ---
Test Reason : Blood Pressure : / mmHG Vent. Rate : 075 BPM Atrial Rate : 075 BPM P-R Int : 158 ms QRS Dur : 086 ms QT Int : 390 ms P-R-T Axes : 070 071 049 degrees QTc Int : 435 ms NORMAL SINUS RHYTHM NORMAL ECG WHEN COMPARED WITH ECG OF 29-MAY-2017 16:32, NO SIGNIFICANT CHANGE WAS FOUND Confirmed by MD JONEL, JUJU ([id number]) on 07/06/2017 10:25:07 AM Referred By: Confirmed By:JUJU REMY MD
[2017-07-06 11:08] LABS: ALBUMIN 3.4 g/dl (3.4-5.0); ALK PHOS 57 U/L (45-117); ANION GAP 4 (8-16); BILIRUBIN,TOTAL 0.3 mg/dL (0.2-1.0); BLOOD UREA NITROGEN 11 mg/dL (7-18); CALCIUM 8.6 mg/dL (8.5-10.1); CHLORIDE 107 mmol/L (98-107); CO2 29 mmol/L (21-32); CREATININE 0.7 mg/dL (0.55-1.02); GLUCOSE,RANDOM 86 mg/dL (74-106); POTASSIUM 4.3 mmol/L (3.5-5.1); SGOT/AST 15 U/L (15-37); SGPT/ALT 29 U/L (12-78); SODIUM 140 mmol/L (136-145); TOT PROT 6.3 g/dl (6.4-8.2)
[2017-07-06] MEDS ORDERED: ZOLPIDEM TARTRATE 10 MG TABLET (PARK CARE ONLY) PO PRN (22:00)
[2017-07-06] MEDS: THIAMINE HCL 100 MG TABLET (FP) PO SCH (22:17)
[2017-07-07] MEDS: chlordiazePOXIDE HCL 25 MG CAPSULE PO SCH ×3 (06:43→17:34)
[2017-07-07] MEDS: NICOTINE 14 MG/24 HOURS TOPICAL PATCH TD SCH (10:45)
[2017-07-07] MEDS: PRENATAL VITAMINS W/ FOLIC ACID TABLET (FP) PO SCH (10:45)
--- NOTE | 2017-07-07 12:01 | PN ---
S CIWA - CIWA Score Nausea/Vomitin Muscle Tremors: 3 Anxiety: 3 Agitation: 1-Slight > Activity Paroxysmal Sweats: 1-Minimal Palms Moist Orientation: 0-Oriented Tacttile Disturbances: 1-Very Mild Itch/Numbness Auditory Disturbances: 1-Very Mild Visual Disturbances: 0-None Headache: 2-Mild CIWA-Ar Total Score: 15 S Progress Note (SOAP) Subjective: ALERT,IRRITABLE,ANXIOUS,INTERRUPTED SLEEP,TREMOR Objective: 07/07/17 12:00 Vital Signs Temperature 98.2 F 07/07/17 10:18 Pulse Rate 84 07/07/17 10:18 Respiratory Rate 20 07/07/17 10:18 Blood Pressure 133/75 07/07/17 10:18 O2 Sat by Pulse Oximetry (%) Laboratory Last Values WBC 5.8 K/mm3 (4.0-10.0) 07/06/17 07:30 RBC 4.74 M/mm3 (3.60-5.2) 07/06/17 07:30 Hgb 13.8 GM/dL (10.7-15.3) 07/06/17 07:30 Hct 41.4 % (32.4-45.2) 07/06/17 07:30 MCV 87.3 fl (80-96) 07/06/17 07:30 MCH 29.1 pg (25.7-33.7) 07/06/17 07:30 MCHC 33.4 g/dl (32.0-36.0) 07/06/17 07:30 RDW 14.3 % (11.6-15.6) 07/06/17 07:30 Plt Count 151 K/MM3 (134-434) 07/06/17 07:30 MPV 10.7 fl (7.5-11.1) 07/06/17 07:30 Sodium 140 mmol/L (136-145) 07/06/17 07:30 Potassium 4.3 mmol/L (3.5-5.1) 07/06/17 07:30 Chloride 107 mmol/L (98-107) 07/06/17 07:30 Carbon Dioxide 29 mmol/L (21-32) 07/06/17 07:30 Anion Gap 4 (8-16) L 07/06/17 07:30 BUN 11 mg/dL (7-18) 07/06/17 07:30 Creatinine 0.7 mg/dL (0.55-1.02) 07/06/17 07:30 Creat Clearance w eGFR > 60 (>60) 07/06/17 07:30 Random Glucose 86 mg/dL (74-106) 07/06/17 07:30 Calcium 8.6 mg/dL (8.5-10.1) 07/06/17 07:30 Total Bilirubin 0.3 mg/dL (0.2-1.0) D 07/06/17 07:30 AST 15 U/L (15-37) 07/06/17 07:30 ALT 29 U/L (12-78) 07/06/17 07:30 Alkaline Phosphatase 57 U/L (45-117) 07/06/17 07:30 Total Protein 6.3 g/dl (6.4-8.2) L 07/06/17 07:30 Albumin 3.4 g/dl (3.4-5.0) 07/06/17 07:30 Urine Color Yellow 07/05/17 22:45 Urine Appearance Slcloudy 07/05/17 22:45 Urine pH 5.0 (5.0-8.0) 07/05/17 22:45 Ur Specific [place] 1.019 (1.001-1.035) 07/05/17 22:45 Urine Protein Negative (NEGATIVE) 07/05/17 22:45 Urine Glucose (UA) Negative (NEGATIVE) 07/05/17 22:45 Urine Ketones Negative (NEGATIVE) 07/05/17 22:45 Urine Blood Negative (NEGATIVE) 07/05/17 22:45 Urine Nitrite Negative (NEGATIVE) 07/05/17 22:45 Urine Bilirubin Negative (<2.0 mg/dL) 07/05/17 22:45 Urine Urobilinogen 4.0 e.u/dl mg/dL (0.2-1.0) H 07/05/17 22:45 Ur Leukocyte Esterase Trace (NEGATIVE) 07/05/17 22:45 Urine WBC (Auto) 4 /hpf (3-5) 07/05/17 22:45 Urine RBC (Auto) 2 /hpf (0-3) 07/05/17 22:45 Ur Epithelial Cells Moderate /HPF (FEW) 07/05/17 22:45 Urine Bacteria Rare /hpf (NONE SEEN) 07/05/17 22:45 Urine Mucus Rare 07/05/17 22:45 RPR Titer Nonreactive (NONREACTIVE) 07/06/17 07:30 HIV 1&2 Antibody Screen Negative 07/06/17 07:30 HIV P24 Antigen Negative 07/06/17 07:30 Assessment: 07/07/17 12:01 WITHDRAWAL SYMPTOM Plan: CONTINUE DETOX
[2017-07-07] MEDS: hydrOXYzine PAMOATE 50 MG CAPSULE (FP) PO PRN (17:34)
--- NOTE | 2017-07-07 17:40 | PN ---
Psychiatric Progress Note Vital Signs: Vital Signs Period Temp Pulse Resp BP Sys/Moya Pulse Ox Last 24 Hr 97.9 F-99.0 F 83-89 16-20 105-133/51-76 Date of Session: 07/07/17 Chief Complaint:: "I feel really depressed." ROS: Unremarkable Current Medications: Active Medications Generic Name Dose Route Start Last Admin Trade Name Freq PRN Reason Stop Dose Admin Acetaminophen 650 mg 07/05/17 21:09 Tylenol - PO Q4H PRN FEVER Al Hydroxide/Mg Hydroxide 30 ml 07/05/17 21:09 Mylanta Oral Suspension - PO Q6H PRN DYSPEPSIA Chlordiazepoxide HCl 15 mg 07/07/17 23:00 Librium - PO 07/08/17 17:01 [id number] ADRI Chlordiazepoxide HCl 25 mg 07/05/17 21:09 07/06/17 09:08 Librium - PO 07/08/17 21:08 25 mg Q4H PRN Administration WITHDRAWAL(CONT SUBST) Chlordiazepoxide HCl 10 mg 07/08/17 23:00 Librium - PO 07/09/17 17:01 [id number] ADRI Eucalyptus/Menthol/Phenol/Sorbitol 1 each 07/05/17 21:09 Cepastat Lozenge - MM Q4H PRN SORE THROAT Guaifenesin 10 ml 07/05/17 21:09 Robitussin Dm - PO Q6H PRN COUGH Hydroxyzine Pamoate 50 mg 07/06/17 10:11 07/07/17 17:34 Vistaril - PO 50 mg Q4H PRN Administration ANXIETY Ibuprofen 400 mg 07/05/17 21:09 Motrin - PO Q6H PRN PAIN LEVEL 4-6 Loperamide HCl 4 mg 07/05/17 21:09 Imodium - PO Q6H PRN DIARRHEA Magnesium Citrate 300 ml 07/05/17 21:09 Citroma - PO Q48H PRN CONSTIPATION Magnesium Hydroxide 30 ml 07/05/17 21:09 Milk Of Magnesia - PO DAILY PRN CONSTIPATION Nicotine 14 mg 07/06/17 10:00 07/07/17 10:45 Nicoderm Patch - TD Not Given DAILY ADRI Nicotine Polacrilex 2 mg 07/05/17 21:09 Nicorette Gum - BC Q2H PRN NICOTINE REPLACEMENT RX Multivit/Folic Acid/Iron 1 tab 07/06/17 10:00 07/07/17 10:45 Vitamins (Sjr) - PO 1 tab DAILY ADRI Administration Pseudoephedrine/Triprolidine 1 combo 07/05/17 21:09 Actifed - PO TID PRN NASAL CONGESTION Thiamine HCl 100 mg 07/05/17 22:00 07/06/17 22:17 Vitamin B1 - PO 100 mg HS ADRI Administration Zolpidem Tartrate 10 mg 07/06/17 22:00 07/06/17 22:17 Ambien - PO 07/09/17 21:59 10 mg HS PRN Administration INSOMNIA Medication(s) Change(s): Yes. Will add lexapro 10mg + Seroquel 50mg. Will lower ambien dose to 5mg. Current Side Effect: No Lab tests ordered: No Lab tests reviewed: Yes Provider note:: Medical Center Representative met with patient concerning psychiatric reconsultation. Pt. presents as sad and tearful. Pt. reports experiencing internal pain from many stressors. Pt. with a history of cannabis, cocaine, amphetamines, and methamphetamines dependence. Patient's primary stressor is not having custody of children and constant drug use. Pt. has three children: 24 year old daughter who currently lives with patient's sister in [place], and a 9 and 12 year old daughter who are in foster care in [place]. Patient had a hearing on wednesday07/05/17 for possible termination of her parental rights but missed the court date due to admitting self to detox. Pt. reports poor appetite, sadness, racing thoughts (tells herself she is a loser and that she lost the flaherty. States it is not auditory hallucinations) and adequate sleep. Pt. tearful at first but able to accept feedback and is motivated to continue treatment. Pt. requesting a psychotrophic medication to assist with her depression and anxiety. Pt. agreeable to starting lexapro 10mg and restarting seroquel 50mg qhs. As per previous entries, patient reports favorable effect after accepting seroquel. Pt. currently denies suicidal and homicidal ideation. Pt. states she is able to approach staff if she has thoughts or urges to hurt herself. Will continue to monitor. Total face to face time:: 45 Mental Status Exam - Mental Status Exam Alert and Oriented to: Time, Place, Person Cognitive Function: Good Patient Appearance: Well Groomed Mood: Sad Affect: Mood Congruent Patient Behavior: Crying, Appropriate, Cooperative Speech Pattern: Appropriate Voice Loudness: Normal Thought Process: Goal Oriented Thought Disorder: Not Present Hallucinations: Denies Suicidal Ideation: Denies Homicidal Ideation: Denies Insight/Judgement: Poor Sleep: Fair Appetite: Fair Muscle strength/Tone: Normal Gait/Station: Normal Psychiatric Treatment Plan - Problem List (1) Cocaine dependence Current Visit: Yes (2) Nicotine dependence Current Visit: Yes Qualifiers: Nicotine product type: cigarettes Substance use status: in withdrawal Qualified Code(s): F17.213 - Nicotine dependence, cigarettes, with withdrawal (3) Substance induced mood disorder Current Visit: Yes (4) Substance-induced sleep disorder Current Visit: Yes (5) Alcohol dependence with withdrawal Current Visit: Yes Qualifiers: Complication of substance-induced condition: uncomplicated Qualified Code(s ): F10.230 - Alcohol dependence with withdrawal, uncomplicated (6) MDD (major depressive disorder) Current Visit: Yes
[2017-07-07] MEDS: ZOLPIDEM TARTRATE 5 MG TABLET PO PRN (22:25)
[2017-07-07] MEDS: chlordiazePOXIDE 5 MG CAPSULE PO SCH (22:25)
[2017-07-07] MEDS: QUEtiapine FUMARATE 50 MG TABLET PO SCH (22:25)
[2017-07-07] MEDS: THIAMINE HCL 100 MG TABLET (FP) PO SCH (22:26)
[2017-07-08] MEDS: chlordiazePOXIDE 5 MG CAPSULE PO SCH ×3 (05:16→17:09)
--- NOTE | 2017-07-08 09:52 | PN ---
S Progress Note (SOAP) Subjective: ALERT,IRRITABLE,ANXIOUS,INTERRUPTED SLEEP Objective: 07/08/17 09:51 Vital Signs Temperature 97.0 F L 07/08/17 06:00 Pulse Rate 71 07/08/17 06:00 Respiratory Rate 18 07/08/17 06:00 Blood Pressure 120/60 07/08/17 06:00 O2 Sat by Pulse Oximetry (%) Assessment: 07/08/17 09:51 WITHDRAWAL SYMPTOM Plan: CONTINUE DETOX,DISCHARGE IN AM
[2017-07-08] MEDS: NICOTINE 14 MG/24 HOURS TOPICAL PATCH TD SCH (10:14)
[2017-07-08] MEDS: ESCITALOPRAM OXALATE 10 MG TABLET (FP) PO SCH (10:14)
[2017-07-08] MEDS: PRENATAL VITAMINS W/ FOLIC ACID TABLET (FP) PO SCH (10:14)
[2017-07-08] MEDS: hydrOXYzine PAMOATE 50 MG CAPSULE (FP) PO PRN (12:08)
[2017-07-08] MEDS: QUEtiapine FUMARATE 50 MG TABLET PO SCH (22:26)
[2017-07-08] MEDS: chlordiazePOXIDE HCL 10 MG CAPSULE PO SCH (22:26)
[2017-07-08] MEDS: THIAMINE HCL 100 MG TABLET (FP) PO SCH (22:26)
[2017-07-08] MEDS: ZOLPIDEM TARTRATE 5 MG TABLET PO PRN (22:28)
[2017-07-09] MEDS: chlordiazePOXIDE HCL 10 MG CAPSULE PO SCH (05:55)
--- NOTE | 2017-07-09 08:19 | PN ---
S Progress Note (SOAP) Subjective: ALERT,NO COMPLAINT Objective: 07/09/17 08:22 Vital Signs Temperature 98.2 F 07/09/17 06:00 Pulse Rate 95 H 07/09/17 06:00 Respiratory Rate 18 07/09/17 06:00 Blood Pressure 121/70 07/09/17 06:00 O2 Sat by Pulse Oximetry (%) Assessment: 07/09/17 08:22 DETOX COMPLETED,NO WITHDRAWAL SYMPTOM Plan: DISCHARGE TODAY,FOLLOW UP WITH AFTER CARE PROGRAM ARRANGEMENT
--- NOTE | 2017-07-09 08:24 | DS ---
[facility] Detox Discharge Summary Admission Date: 07/05/17 Discharge Date: 07/09/17 - History Present History: Alcohol Dependence, Cocaine Dependence Additional Comments: FOLLOW UP WITH AFTER CARE PROGRAM ARRANGEMENT Pertinent Past History: ASTHMA NIOTINE DEPENDENCE SUBSTANCE INDUCED MOOD DISORDER SUBSTANCE INDUCED SLEEP DISORDER - Physical Exam Results Vital Signs: Vital Signs Temperature 98.2 F 07/09/17 06:00 Pulse Rate 95 H 07/09/17 06:00 Respiratory Rate 18 07/09/17 06:00 Blood Pressure 121/70 07/09/17 06:00 O2 Sat by Pulse Oximetry (%) Pertinent Admission Physical Exam Findings: WITHDRAWAL SIGNS AND SYMPTOM Vital Signs Temperature 98.2 F 07/09/17 06:00 Pulse Rate 95 H 07/09/17 06:00 Respiratory Rate 18 07/09/17 06:00 Blood Pressure 121/70 07/09/17 06:00 O2 Sat by Pulse Oximetry (%) Laboratory Last Values WBC 5.8 K/mm3 (4.0-10.0) 07/06/17 07:30 RBC 4.74 M/mm3 (3.60-5.2) 07/06/17 07:30 Hgb 13.8 GM/dL (10.7-15.3) 07/06/17 07:30 Hct 41.4 % (32.4-45.2) 07/06/17 07:30 MCV 87.3 fl (80-96) 07/06/17 07:30 MCH 29.1 pg (25.7-33.7) 07/06/17 07:30 MCHC 33.4 g/dl (32.0-36.0) 07/06/17 07:30 RDW 14.3 % (11.6-15.6) 07/06/17 07:30 Plt Count 151 K/MM3 (134-434) 07/06/17 07:30 MPV 10.7 fl (7.5-11.1) 07/06/17 07:30 Sodium 140 mmol/L (136-145) 07/06/17 07:30 Potassium 4.3 mmol/L (3.5-5.1) 07/06/17 07:30 Chloride 107 mmol/L (98-107) 07/06/17 07:30 Carbon Dioxide 29 mmol/L (21-32) 07/06/17 07:30 Anion Gap 4 (8-16) L 07/06/17 07:30 BUN 11 mg/dL (7-18) 07/06/17 07:30 Creatinine 0.7 mg/dL (0.55-1.02) 07/06/17 07:30 Creat Clearance w eGFR > 60 (>60) 07/06/17 07:30 Random Glucose 86 mg/dL (74-106) 07/06/17 07:30 Calcium 8.6 mg/dL (8.5-10.1) 07/06/17 07:30 Total Bilirubin 0.3 mg/dL (0.2-1.0) D 07/06/17 07:30 AST 15 U/L (15-37) 07/06/17 07:30 ALT 29 U/L (12-78) 07/06/17 07:30 Alkaline Phosphatase 57 U/L (45-117) 07/06/17 07:30 Total Protein 6.3 g/dl (6.4-8.2) L 07/06/17 07:30 Albumin 3.4 g/dl (3.4-5.0) 07/06/17 07:30 Urine Color Yellow 07/05/17 22:45 Urine Appearance Slcloudy 07/05/17 22:45 Urine pH 5.0 (5.0-8.0) 07/05/17 22:45 Ur Specific Gomer 1.019 (1.001-1.035) 07/05/17 22:45 Urine Protein Negative (NEGATIVE) 07/05/17 22:45 Urine Glucose (UA) Negative (NEGATIVE) 07/05/17 22:45 Urine Ketones Negative (NEGATIVE) 07/05/17 22:45 Urine Blood Negative (NEGATIVE) 07/05/17 22:45 Urine Nitrite Negative (NEGATIVE) 07/05/17 22:45 Urine Bilirubin Negative (<2.0 mg/dL) 07/05/17 22:45 Urine Urobilinogen 4.0 e.u/dl mg/dL (0.2-1.0) H 07/05/17 22:45 Ur Leukocyte Esterase Trace (NEGATIVE) 07/05/17 22:45 Urine WBC (Auto) 4 /hpf (3-5) 07/05/17 22:45 Urine RBC (Auto) 2 /hpf (0-3) 07/05/17 22:45 Ur Epithelial Cells Moderate /HPF (FEW) 07/05/17 22:45 Urine Bacteria Rare /hpf (NONE SEEN) 07/05/17 22:45 Urine Mucus Rare 07/05/17 22:45 RPR Titer Nonreactive (NONREACTIVE) 07/06/17 07:30 HIV 1&2 Antibody Screen Negative 07/06/17 07:30 HIV P24 Antigen Negative 07/06/17 07:30 - Treatment Hospital Course: Detox Protocol Followed, Detoxed Safely, Responded well, Discharged Condition Good Patient has Accepted a Rehab Referral to: DECLINED - Medication Discharge Medications: Ambulatory Orders Quetiapine Fumarate [Quetiapine Fumarate ER] 50 mg PO HS #30 tab.er.24h - Diagnosis (1) Alcohol dependence with withdrawal Current Visit: Yes Status: Acute Qualifiers: Complication of substance-induced condition: uncomplicated Qualified Code(s ): F10.230 - Alcohol dependence with withdrawal, uncomplicated (2) Cocaine dependence Current Visit: Yes Status: Acute (3) Asthma Current Visit: No Status: Chronic Qualifiers: Asthma severity: mild Asthma persistence: intermittent Asthma complication type: with status asthmaticus Qualified Code(s): J45.22 - Mild intermittent asthma with status asthmaticus (4) Nicotine dependence Current Visit: Yes Status: Chronic Qualifiers: Nicotine product type: cigarettes Substance use status: in withdrawal Qualified Code(s): F17.213 - Nicotine dependence, cigarettes, with withdrawal (5) Substance induced mood disorder Current Visit: Yes Status: Acute (6) Substance-induced sleep disorder Current Visit: Yes Status: Acute - AMA Did Patient Leave Against Medical Advice: No
[2017-07-09] MEDS: ESCITALOPRAM OXALATE 10 MG TABLET (FP) PO SCH (09:44)
[2017-07-09] MEDS: PRENATAL VITAMINS W/ FOLIC ACID TABLET (FP) PO SCH (09:44)
[2017-07-09 10:15] VITALS: BP 123/69; PULSE 98; TEMP 98.8
== END 2017-07-09 10:05 | disposition home or self-care (01) | DRG 774 ==
LOC: YASAS 15:43 → Y6N 19:51
PROVIDERS: ADMIT Internal Medicine; ATTEND Internal Medicine
PROC: HZ2ZZZZ Detoxification Services for Substance Abuse Treatment (ICD-10-PCS; principal; 2017-07-05)
DX: F10.230 Alcohol dependence with withdrawal, uncomplicated (principal); F14.20 Cocaine dependence, uncomplicated; F17.210 Nicotine dependence, cigarettes, uncomplicated; F19.24 Other psychoactive substance dependence with psychoactive substance-induced mood disorder; F19.282 Other psychoactive substance dependence with psychoactive substance-induced sleep disorder; J45.22 Mild intermittent asthma with status asthmaticus; F41.0 Panic disorder [episodic paroxysmal anxiety]; F41.9 Anxiety disorder, unspecified; Z91.5 Personal history of self-harm; F32.9 Major depressive disorder, single episode, unspecified; F12.20 Cannabis dependence, uncomplicated
CPT/HCPCS: 36415; 80053; 81003; 81015; 85027; 86593; 87389; 93005; 93010